=== PATIENT | female | born 1995 | race Caucasian/White ===

== ENCOUNTER 2018-11-01 19:34 | Emergency (ER) | payer OTHER, MEDICAID ==
[~2018-11-01] VITALS: Ht 152.4 cm; Wt 90.7 kg
[~2018-11-01 19:34] MED LIST: APAP500 PO; BACTRIM DS TAB1 EACH PO; CLEOCIN HCL300 MG PO; DERMOPLAST SPRA56 ML; FLAGYL500 MG PO; IBUPROFEN 600600 M1 PO; TRAMADOL 50 MG50 MG PO; TUCKS MEDICATE1 EAC1
[2018-11-01] MEDS ORDERED: NORCO 5-325 TA1 EAC1 PO ×2 (20:00→22:34)
[2018-11-01 20:38] LABS: ABSOLUTE BASOPHILS 0.1 thou/uL (0.0-0.2); ABSOLUTE EOSINOPHILS 0.2 thou/uL (0.0-0.7); ABSOLUTE LYMPHOCYTES 1.7 thou/uL (0.8-5.3); ABSOLUTE MONOCYTES 0.3 thou/uL (0.0-1.2); ABSOLUTE NEUTROPHILS 3.8 thou/uL (1.6-8.1); BASOPHILS 1.1 %; EOSINOPHILS 3.7 %; HEMATOCRIT 33.2 % (37.0-47.0); HEMOGLOBIN 11.2 gm/dL (12.0-15.0); LYMPHOCYTES 28.2 %; MCH 29.4 pg (26.0-34.0); MCHC 33.9 g/dL (28.0-37.0); MCV 86.7 fL (80.0-100.0); MONOCYTES 4.5 %; MPV 7.1 fl. (7.2-11.1); NUCLEATED RBCS 0 /100WBC; PLATELET COUNT* 362 thou/uL (150-400); POLYS 62.5 %; RBC 3.83 mil/uL (4.20-5.00); RDW-CV 15.6 % (10.5-14.5); WBC 6.1 thou/uL (4.0-11.0)
[2018-11-01 20:53] LABS: CALCIUM 9.4 mg/dL (8.5-10.1); CREATININE 0.8 mg/dL (0.6-1.3); POTASSIUM 3.9 mmol/L (3.5-5.1)
[2018-11-01 20:57] LABS: ALBUMIN 2.9 g/dL (3.4-5.0); TOTAL BILIRUBIN 0.2 mg/dL (<0.1-1.0); TOTAL PROTEIN 7.2 g/dL (6.4-8.2)
[2018-11-01 21:51] LABS: URINE BILIRUBIN NEGATIVE (Negative); URINE BLOOD 2+ (Negative); URINE CLARITY CLEAR; URINE COLOR YELLOW; URINE GLUCOSE-RANDOM NEGATIVE (Negative); URINE KETONES NEGATIVE (Negative); URINE LEUKOCYTES-REFLEX 1+ (Negative); URINE NITRITE-REFLEX NEGATIVE (Negative); URINE PROTEIN NEGATIVE (Negative); URINE SPECIFIC GRAVITY <= 1.005 (1.005-1.030); URINE UROBILINOGEN 0.2 E.U./dl (0.2-1.0)
[2018-11-01 22:09] LABS: CASTS None Seen /LPF (None Seen); CRYSTALS None Seen /LPF (None Seen); SQUAMOUS 0-3 Few /LPF (0-3); URINE RBC 0-2 Rare /HPF (0-2)
[2018-11-01] MEDS ORDERED: KEFLEX500 M1 PO (22:27)
[2018-11-01] MEDS ORDERED: NABUMETONE 750750 M1 PO (22:34)
[2018-11-01 22:49] VITALS: BP 129/52
== END 2018-11-01 22:54 | disposition left against medical advice (07) ==
LOC: M.ERS 19:34
PROVIDERS: Nurse Practitioner Family
DX: O86.20 Urinary tract infection following delivery, unspecified (principal)

== ENCOUNTER 2019-03-03 04:11 | Emergency (ER) | payer OTHER, MEDICAID ==
[~2019-03-03] VITALS: Ht 152.4 cm; Wt 90.7 kg
[~2019-03-03 04:11] MED LIST changes: +KEFLEX500 M1 PO; +NABUMETONE 750750 M1 PO; +NORCO 5-325 TA1 EAC1 PO
[2019-03-03 04:44] LABS: ABSOLUTE BASOPHILS 0.1 thou/uL (0.0-0.2); ABSOLUTE EOSINOPHILS 0.3 thou/uL (0.0-0.7); ABSOLUTE MONOCYTES 0.6 thou/uL (0.0-1.2); ABSOLUTE NEUTROPHILS 4.7 thou/uL (1.6-8.1); BASOPHILS 1.3 %; EOSINOPHILS 3.1 %; HEMATOCRIT 40.3 % (37.0-47.0); HEMOGLOBIN 13.5 gm/dL (12.0-15.0); LYMPHOCYTES 34.8 %; MCH 26.2 pg (26.0-34.0); MCHC 33.5 g/dL (28.0-37.0); MCV 78.2 fL (80.0-100.0); MPV 8.1 fl. (7.2-11.1); NUCLEATED RBCS 0 /100WBC; PLATELET COUNT* 321 thou/uL (150-400); POLYS 53.8 %; RBC 5.16 mil/uL (4.20-5.00); RDW-CV 20.7 % (10.5-14.5); WBC 8.7 thou/uL (4.0-11.0)
[2019-03-03 04:47] LABS: URINE BLOOD 1+ (Negative); URINE CLARITY CLEAR; URINE COLOR YELLOW; URINE GLUCOSE-RANDOM NEGATIVE (Negative); URINE KETONES TRACE (Negative); URINE LEUKOCYTES-REFLEX NEGATIVE (Negative); URINE NITRITE-REFLEX NEGATIVE (Negative); URINE PROTEIN NEGATIVE (Negative); URINE SPECIFIC GRAVITY >= 1.030 (1.005-1.030); URINE UROBILINOGEN 0.2 E.U./dl (0.2-1.0)
[2019-03-03 04:49] LABS: ICTOTEST (BILI CONFIRMATORY) Negative (Negative); URINE BILIRUBIN 1+ (Negative)
[2019-03-03 04:55] LABS: AMP/METHAMP Negative (Negative); BARBITURATES Negative (Negative); BENZODIAZEPINES Negative (Negative); COCAINE Negative (Negative); METHADONE Negative (Negative); OPIATES Negative (Negative); PCP Negative (Negative); THC POSITIVE (Negative)
[2019-03-03 04:56] LABS: CALCIUM 9.6 mg/dL (8.5-10.1); POTASSIUM 4.1 mmol/L (3.5-5.1)
[2019-03-03 05:00] LABS: ALBUMIN 4.4 g/dL (3.4-5.0); TOTAL BILIRUBIN 0.5 mg/dL (<0.1-1.0); TOTAL PROTEIN 8.4 g/dL (6.4-8.2)
[2019-03-03] MEDS ORDERED: ZOFRAN ODT4 MG DISSOLVE ×2 (05:33→05:35)
[2019-03-03 05:48] VITALS: BP 113/53
[2019-03-03 06:06] LABS: BACTERIA-REFLEX >30 Many /HPF (None Seen); CASTS None Seen /LPF (None Seen); CRYSTALS None Seen /LPF (None Seen); MUCUS >6 Heavy strn/LPF (None Seen); SQUAMOUS 4-10 Moderate /LPF (0-3); TRANSITIONAL EPITHEL CELL 0-3 Few /LPF (None Seen); URINE RBC 3-10 Few /HPF (0-2); URINE WBC-REFLEX None Seen /HPF (0-5)
--- NOTE | 2019-03-04 08:44 | EKG ---
[place] [address] ELECTROCARDIOGRAM REPORT Name: CHARLES VILLASENOR Room: [facility]#: [id number] Admission: 03/03/19 Attend Phys: Discharge: 03/03/19 Date of : [birth year] Report #: [id number] THIS REPORT FOR: //name// [facility] ED Test Date: 2019-03-03 Test Time: 04:40:25 Pat Name: CHARLES VILLASENOR Department: Room: Gender: F Scheduling Administrator: : [id number] Requested By: Piotr Ureña Order Number: [id number] MD: Shaheen Taylor Measurements Intervals [place] Rate: 81 P: 36 ID: [id number] QRS: 6 QRSD: 84 T: 37 QT: 397 QTc: 461 Interpretive Statements Sinus arrhythmia poor r wave progression No previous ECG available for comparison Electronically Signed On 03-04-2019 8:43:57 [employer] by Shaheen Taylor [email or web address] <ELECTRONICALLY SIGNED> By: Shaheen Taylor MD, [facility] 03/04/19 0843 [id number] [id number] Shaheen Taylor MD, FACC /EPI
== END 2019-03-03 05:48 ==
LOC: M.ERS 04:11
PROVIDERS: Emergency Medicine Emergency Medical Services
DX: R11.15 Cyclical vomiting syndrome unrelated to migraine (principal); F17.210 Nicotine dependence, cigarettes, uncomplicated; Z98.890 Other specified postprocedural states; Z79.899 Other long term (current) drug therapy